=== PATIENT | male | born 1965 | race African-American/Black ===

== ENCOUNTER 2016-07-21 10:05 | Emergency (ER) | payer BC, OTHER ==
[2016-07-21 10:17] VITALS: BP 134/88; PULSE 94; TEMP 98.3
[2016-07-21] MEDS ORDERED: PENICILLIN V POTASSIUM 250 MG TAB PO STA (10:51)
[2016-07-21] MEDS ORDERED: HYDROcodone/APAP 5-325MG 1 EACH TAB PO STA (10:51)
--- NOTE | 2016-07-21 10:52 | ED ---
ENT HPI - General Chief complaint: Dental/Oral Stated complaint: mouth pain Time Seen by Provider: 07/21/16 10:27 Source: patient, RN notes reviewed Mode of arrival: ambulatory Limitations: no limitations - History of Present Illness Initial comments: 51-year-old male present emergency department for right-sided dental pain. Patient states started over the last day or 2. Patient's concern is he has some swelling. Patient denies fever, chills, trismus. Patient denies any headache, next. Patient offers no complaints. - Related Data Previous Rx's Medication Instructions Recorded Hydrocodone/Acetaminophen [[place] 1 tab PO Q6HR PRN #20 tab 07/21/16 5-325] Penicillin V Potassium [Pen Vee K] 500 mg PO QID #40 tab 07/21/16 Allergies Allergy/AdvReac Type Severity Reaction Status Date / Time No Known Allergies Allergy Verified 07/21/16 10:17 Review of Systems ROS Statement: Those systems with pertinent positive or pertinent negative responses have been documented in the HPI. ROS Other: All systems not noted in ROS Statement are negative. Past Medical History Past Medical History: Diabetes Mellitus History of Any Multi-Drug Resistant Organisms: None Reported Past Surgical History: Orthopedic Surgery Past Psychological History: No Psychological Hx Reported Smoking Status: Current every day smoker Past Alcohol Use History: None Reported Past Drug Use History: None Reported General Exam Limitations: no limitations General appearance: alert, in no apparent distress Head exam: Present: atraumatic, normocephalic, normal inspection Eye exam: Present: normal appearance, PERRL, EOMI. Absent: scleral icterus, conjunctival injection, periorbital swelling ENT exam: Present: mucous membranes moist. Absent: normal oropharynx (Abscess noted #3, dental fracture) Neck exam: Present: normal inspection, full ROM. Absent: tenderness, meningismus, lymphadenopathy Respiratory exam: Present: normal lung sounds bilaterally. Absent: respiratory distress, wheezes, rales, rhonchi, stridor Cardiovascular Exam: Present: regular rate, normal rhythm, normal heart sounds. Absent: systolic murmur, diastolic murmur, rubs, gallop, clicks Course Vital Signs 07/21/16 10:15 Temperature 98.3 F Pulse Rate 94 Respiratory 20 Rate Blood Pressure 134/88 O2 Sat by Pulse 98 Oximetry Procedures - Procedures Initial comment: Dental abscess tooth #3. Area was anesthetized using 1% lidocaine without epinephrine 2 mL, 18-gauge needle was used to open the abscess large amount. Drainage was removed. Disposition Clinical Impression: Dental abscess, Toothache Disposition: HOME SELF-CARE Condition: Stable Instructions: Dental Abscess (ED) Additional Instructions: Please follow-up with your dentist or on-call oral surgeon.Please return to the Emergency Department if symptoms worsen or any other concerns. Prescriptions: Hydrocodone/Acetaminophen [[place] 5-325] 1 tab PO Q6HR PRN #20 tab PRN Reason: Pain Penicillin V Potassium [Pen Vee K] 500 mg PO QID #40 tab Referrals: Reshma Sykes DO [Primary Care Provider] - 1-2 days Gelacio Rangel DDS [STAFF PHYSICIAN] - 1-2 days Time of Disposition: 10:51
[2016-07-21] MEDS ORDERED: PENICILLIN VK 500MG STARTER 4 TAB BTL PO STA (10:58)
[2016-07-21 11:09] VITALS: RESP 16
== END 2016-07-21 11:05 | disposition home or self-care (01) ==
LOC: EC 10:05
DX: K04.7 Periapical abscess without sinus (principal); E11.9 Type 2 diabetes mellitus without complications; Z79.899 Other long term (current) drug therapy
CPT/HCPCS: 41800; 99282

== ENCOUNTER 2018-11-21 15:11 | Emergency (ER) | payer MEDICARE, OTHER ==
[2018-11-21 15:22] VITALS: BP 115/62; PULSE 90; RESP 18; TEMP 97.5
[2018-11-21] MEDS ORDERED: predniSONE 50 MG TAB PO STA (15:35)
[2018-11-21] MEDS ORDERED: KETOROLAC 60 MG/2 ML VIAL IM STA (15:35)
--- NOTE | 2018-11-21 15:41 | ED ---
General Adult HPI - General Chief complaint: Back Pain/Injury Stated complaint: back pain Time Seen by Provider: 11/21/18 15:25 Source: patient, RN notes reviewed, old records reviewed Mode of arrival: ambulatory Limitations: no limitations - History of Present Illness Initial comments: 52-year-old male patient presents ED with left paralumbar back strain. Patient was that he was moving some heavy furniture yesterday when he began to drain some pain in his left paralumbar region. Patient denies any falls or trauma. Patient denies any loss of bowel or bladder control. Patient states that he had some transient paresthesias on the medial aspect of his thighs which resolved. Denies any current paresthesias. Patient is ambulatory. Patient denies any chest pain shortness breath abdominal pain. Patient denies any other complaints. Systemic: Pt denies fatigue, myalgia, fever/chills, rash. Pt denies weakness, night sweats, weight loss. Neuro: Pt denies headache, visual disturbances, syncope or pre-syncope. HEENT: Pt denies ocular discharge or irritation, otalgia, rhinorrhea, pharyngitis or notable lymphadenopathy. Cardiopulmonary: Pt denies chest pain, SOB, heart palpitations, dyspnea on exertion. Abdominal/GI: Pt denies abdominal pain, n/v/d. : Pt denies dysuria, burning w/ urination, frequency/urgency. Denies new onset urinary or bowel incontinence. MSK: Pt denies loss of strength or function in extremities. Neuro: Pt denies new onset weakness, paresthesias. - Related Data Previous Rx's Medication Instructions Recorded Hydrocodone/Acetaminophen [[place] 1 tab PO Q6HR PRN #20 tab 07/21/16 5-325] Penicillin V Potassium [Pen Vee K] 500 mg PO QID #40 tab 07/21/16 Ibuprofen [Motrin] 600 mg PO Q6HR PRN #40 day 11/21/18 predniSONE 50 mg PO DAILY #4 tab 11/21/18 Allergies Allergy/AdvReac Type Severity Reaction Status Date / Time No Known Allergies Allergy Verified 07/21/16 10:17 Review of Systems ROS Statement: Those systems with pertinent positive or pertinent negative responses have been documented in the HPI. ROS Other: All systems not noted in ROS Statement are negative. Past Medical History Past Medical History: Diabetes Mellitus History of Any Multi-Drug Resistant Organisms: None Reported Past Surgical History: Orthopedic Surgery Past Psychological History: No Psychological Hx Reported Smoking Status: Current every day smoker Past Alcohol Use History: None Reported Past Drug Use History: None Reported General Exam - General Exam Comments Initial Comments: Constitutional: NAD, AOX3, Pt has pleasant affect. HEENT: NC/AT, trachea midline, neck supple, no lymphadenopathy. Posterior pharynx non erythematous, without exudates. External ears appear normal, without discharge. Mucous membranes moist. Eyes PERRLA, EOM intact. There is no scleral icterus. No pallor noted. Cardiopulmonary: RRR, no murmurs, rubs or gallops, no JVD noted. Lungs CTAB in anterior and posterior moon. No peripheral edema. Abdominal exam: Abdomen soft and non-distended. Abdomen non-tender to palpation in all 4 quadrants. Bowel sounds active in LLQ. No hepatosplenomegaly. No ecchy mosis Neuro: CN II-XII grossly intact. No nuchal rigidity. MSK: 5 out of 5 strength psoas and quadriceps muscles. Sensation intact. Heel to toe walking intact. Left straight leg raise positive. Patient declined rectal exam. No posterior calf tenderness bilaterally, homans sign negative bilaterally. Posterior tibialis and radial pulse +2 bilaterally. Sensation intact in upper and lower extremities. Full active ROM in upper and lower extremities, 5/5 stregnth. Limitations: no limitations Course Vital Signs 11/21/18 15:20 Temperature 97.5 F L Pulse Rate 90 Respiratory 18 Rate Blood Pressure 115/62 O2 Sat by Pulse 99 Oximetry Medical Decision Making - Medical Decision Making 52-year-old male patient presents ED with left paralumbar back strain. Patient was that he was moving some heavy furniture yesterday when he began to drain some pain in his left paralumbar region. Patient denies any falls or trauma. Patient denies any loss of bowel or bladder control. Patient states that he had some transient paresthesias on the medial aspect of his thighs which resolved. Denies any current paresthesias. Patient is ambulatory. Patient denies any chest pain shortness breath abdominal pain. Patient denies any other complaints. PT VSS, afebrile. 5 out of 5 strength psoas and quadriceps muscles. Sensation intact. Heel to toe walking intact. Left straight leg raise positive. Patient declined rectal exam. Plain film of the lumbar spine did not display any acute process. Patient diagnosed with paralumbar back strain with radiculopathy. Patient discharged with 4 additional days of steroids. Patient will use ibuprofen as needed for pain. Patient will initially follow up with primary care provider. Return precautions discussed, patient verbalized understanding. Patient will be provided orthopedic consult if symptoms persist. Case discussed with Dr. Bray. Disposition Clinical Impression: Lumbar back sprain Disposition: HOME SELF-CARE Condition: Stable Instructions (If sedation given, give patient instructions): Acute Low Back Pain (ED) Additional Instructions: Patient to adhere to previously discussed treatment plan and will take medication(s) as directed. Patient to follow up with PCP in 1-2 days. Patient to return to ED if symptoms do not improve. Take medication as directed. Follow up with primary care provider in 1-2 days. Follow up with orthopedic consult symptoms persist. Return to ER if conditions worsen anyway. Prescriptions: Ibuprofen [Motrin] 600 mg PO Q6HR PRN #40 day PRN Reason: Pain predniSONE 50 mg PO DAILY #4 tab Is patient prescribed a controlled substance at d/c from ED?: No Referrals: None,Stated [Primary Care Provider] - 1-2 days Madeline Castro DO [Doctor of Osteopathic Medicine] - 1-2 days [facility] [NON-STAFF] - 1-2 days
--- NOTE | 2018-11-21 16:18 | XR ---
EXAMINATION TYPE: XR lumbar spine 2 or 3V DATE OF EXAM: 11/21/2018 CLINICAL HISTORY: Back pain after lifting injury yesterday TECHNIQUE: Frontal and lateral images of the lumbar spine are obtained. 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 There are 5 lumbar type vertebral bodies identified given this assumption. The lumbar spine shows straightened alignment without evidence of acute fracture or dislocation. Vertebral body heights and disk space heights are within normal limit s. The overlying soft tissue appears unremarkable. IMPRESSION: No acute fracture or dislocation is seen in the lumbar spine.
== END 2018-11-21 16:40 | disposition home or self-care (01) ==
LOC: EC 15:11
DX: S39.012A Strain of muscle, fascia and tendon of lower back, initial encounter (principal); M54.16 Radiculopathy, lumbar region; F17.200 Nicotine dependence, unspecified, uncomplicated; X50.0XXA Overexertion from strenuous movement or load, initial encounter
CPT/HCPCS: 72100; 99284; 96372; J1885; J7512

== ENCOUNTER 2018-11-29 16:39 | Emergency (ER) | payer MEDICARE ==
[2018-11-29 17:04] VITALS: BP 108/71; PULSE 101; RESP 18; TEMP 98.6
[2018-11-29] MEDS ORDERED: methylPREDNISolone SOD SUCCI 125 MG/2 ML VIAL IM ONE (18:29)
[2018-11-29] MEDS ORDERED: Acetaminophen-Codeine 300-30mg TAB PO STA (18:30)
[2018-11-29] MEDS ORDERED: IBUPROFEN 600 MG TAB PO STA (18:30)
[2018-11-29] MEDS ORDERED: ACET/COD 300 MG/30 MG STARTER PACK 6 TAB BTL PO STA (18:54)
--- NOTE | 2018-11-29 18:56 | ED ---
Back Pain [facility] - General Chief Complaint: Back Pain/Injury Stated Complaint: back pain Time Seen by Provider: 11/29/18 17:25 Source: patient Limitations: no limitations - History of Present Illness Initial Comments: 53-year-old male presenting for neck and low back pain. Patient states that about a week ago he was lifting heavy furniture and noted pain in his neck and low back. Patient states that he has had pain since. He presents to the emergency department for evaluation of low back pain earlier this week. He states the pain has continued he believes he has "sciatica". He states he has a sharp pain that radiates down both legs that increases with moving. He denies any weakness or loss of bowel bladder control or urinary retention. He states he has full sensation of both legs. He states he has had a previous neck injury, and hasn't had any recent problems until he lifted the heavy object last week. He states he has a sharp shooting pain in the left arm. He denies any speech changes visual changes headache falls or trauma to the head. He states the left arm pain is identical to when he had neck problems in the past. Patient denies chest pain or SOB. She denies any IV drug use history of cancer fever chills night sweats Remaining ROS (-). Upon arrival patient appears well- nourished signs of acute distress ambulate without difficulty. - Related Data Home Medications Medication Instructions Recorded Confirmed Empagliflozin [Jardiance] 10 mg PO DAILY 11/21/18 11/29/18 [place] Carbonate [Lithobid] 600 mg PO HS 11/21/18 11/29/18 Losartan Potassium [Cozaar] 25 mg PO DAILY 11/21/18 11/29/18 Oxymetazoline HCl [Vicks Sinex] 1 spray EA NOSTRIL DAILY PRN 11/21/18 11/29/18 Tamsulosin HCl [Flomax] 0.4 mg PO HS 11/21/18 11/29/18 glipiZIDE [Glucotrol] 10 mg PO BID 11/21/18 11/29/18 metFORMIN HCL ER [Glucophage Xr] 1,000 mg PO BID 11/21/18 11/29/18 Previous Rx's Medication Instructions Recorded Ibuprofen [Motrin] 600 mg PO Q6HR PRN #40 day 11/21/18 predniSONE 50 mg PO DAILY #4 tab 11/21/18 Allergies Allergy/AdvReac Type Severity Reaction Status Date / Time No Known Allergies Allergy Verified 11/29/18 17:55 Review of Systems ROS Statement: Those systems with pertinent positive or pertinent negative responses have been documented in the HPI. ROS Other: All systems not noted in ROS Statement are negative. Past Medical History Past Medical History: Diabetes Mellitus Additional Past Medical History / Comment(s): back History of Any Multi-Drug Resistant Organisms: None Reported Past Surgical History: Orthopedic Surgery Past Psychological History: No Psychological Hx Reported Smoking Status: Current every day smoker Past Alcohol Use History: Occasional Past Drug Use History: None Reported General Exam - General Exam Comments Initial Comments: General: The patient is awake and alert, in no distress, and does not appear acutely ill. Eye: Pupils are equal, round and reactive to light, extra-ocular movements are intact. No nystagmus. There is normal conjunctiva bilaterally. No signs of icterus. Ears, nose, mouth and throat: There are moist mucous membranes and no oral lesions. Neck: The neck is supple, there is no tenderness or JVD. Cardiovascular: There is a regular rate and rhythm. No murmur, rub or gallop is appreciated. Respiratory: Lungs are clear to auscultation, respirations are non-labored, breath sounds are equal. No wheezes, stridor, rales, or rhonchi. Gastrointestinal: Soft, non-distended, non-tender abdomen without masses or organomegaly noted. There is no rebound or guarding present. Musculoskeletal: Paravertebral tenderness of the cervical and lumbar spine. Mild midline tenderness to palpation of the lumbar spine. No midline tenderness to palpation of the cervical spine. Positive Spurling's of the left side on exam. Normal ROM, no tenderness of the upper and lower extremities. Strength 5/5 of the upper and lower extremities equal and comparison bilaterally no evidence of weakness. Sensation intact of the upper and lower extremities including the saddle region. Radial and DP pulses equal bilaterally 2+. No LE swelling. +2/5 DTR of the patella and achilles. No clonus or fasciculations. Patient is able to make the okay fingers crossed thumbs-up and oppose the wrist bilaterally. Neurological: A&O x 3. CN II-XII intact, There are no obvious motor or sensory deficits. Coordination appears grossly intact. Speech is normal. Skin: Skin is warm and dry and no rashes or lesions are noted. Psychiatric: Cooperative, appropriate mood & affect, normal judgment. Limitations: no limitations Course Vital Signs 11/29/18 17:01 Temperature 98.6 F Pulse Rate 101 H Respiratory 18 Rate Blood Pressure 108/71 O2 Sat by Pulse 98 Oximetry Medical Decision Making - Medical Decision Making 53-year-old male presented for back pain and neck pain following lifting heavy objects one-week prior. Patient describes pain sharp shooting appears radicular in nature. Reducible by walking positive straight leg raise. Positive Spurling's on the left sidetest on the right. Patient denies any pain prior to the onset of lifting heavy furniture. Patient believes he has sciatica. Patient is provided medications in the emergency department he states he just wanted symptomatic relief. He states he had previous imaging studies. After medication was administered patient requesting discharge. At this time given patient is neurovascular intact no evidence of weakness or sensation deficits. Patient denies any chest pain or shortness of breath. Pain is reproducible. The patient is stable for discharge after discussing case with her provider Dr. Bunn. He is agreeable care plan discharge. I did recommend orthopedic surgery follow-up with patient for further evaluation if symptoms persist. Return parameters were discussed at length the patient including signs of cauda equina. He verbalized understanding. I discussed the possibility of herniated disc causing patient's symptoms. Patient verbalizes understanding. Patient was discharged appearing well Disposition Clinical Impression: Back pain, Radicular pain, Neck pain Disposition: HOME SELF-CARE Condition: Good Instructions (If sedation given, give patient instructions): Lumbar Disc Herniation (ED), Cervical Disc Herniation (ED), Lower Back Exercises (ED) Additional Instructions: Please use medication as discussed. Please follow-up with family doctor in the next 2 days. Please follow-up with orthopedic surgery as discussed. Please return to emergency room if the symptoms increase or worsen or for any other concerns. Is patient prescribed a controlled substance at d/c from ED?: No Referrals: None,Stated [Primary Care Provider] - 1-2 days [facility] [NON-STAFF] - 1-2 days Madeline Castro DO [Doctor of Osteopathic Medicine] - 1-2 days Time of Disposition: 18:55
== END 2018-11-29 19:05 | disposition home or self-care (01) ==
LOC: EC 16:39
DX: M54.16 Radiculopathy, lumbar region (principal); M54.12 Radiculopathy, cervical region; E11.9 Type 2 diabetes mellitus without complications; F17.200 Nicotine dependence, unspecified, uncomplicated; Z79.84 Long term (current) use of oral hypoglycemic drugs; Z79.899 Other long term (current) drug therapy
CPT/HCPCS: 99283; 96372; J2930

== ENCOUNTER 2020-02-03 12:53 | Emergency (ER) | payer MEDICARE, OTHER ==
[2020-02-03 13:13] VITALS: BP 130/83; PULSE 100; RESP 18; TEMP 99.4
--- NOTE | 2020-02-03 13:23 | ED ---
ENT HPI - General Chief complaint: Dental/Oral Stated complaint: Dental Pain Time Seen by Provider: 02/03/20 13:15 Source: patient Mode of arrival: ambulatory Limitations: no limitations - History of Present Illness Initial comments: Patient is a 54-year-old male presenting to emergency Department with chief complaint of dental pain. Patient reports recently he had them canal performed in the right upper region of the oral cavity. Patient reports he was started amoxicillin but states he has developed swelling in the region. Patient states now his gums "looked black". Patient denies any night sweats fevers or chills. States he still able to fully open the mouth. Denies any submandibular swelling, odontophagia or dysphagia. He reports a mild right-sided facial swelling near the right maxillary region where the root canals performed. He is not a diabetic nor immunocompromised. - Related Data Home Medications Medication Instructions Recorded Confirmed Empagliflozin [Jardiance] 10 mg PO DAILY 11/21/18 11/29/18 [place] Carbonate [Lithobid] 600 mg PO HS 11/21/18 11/29/18 Losartan Potassium [Cozaar] 25 mg PO DAILY 11/21/18 11/29/18 Oxymetazoline HCl [Vicks Sinex] 1 spray EA NOSTRIL DAILY PRN 11/21/18 11/29/18 Tamsulosin HCl [Flomax] 0.4 mg PO HS 11/21/18 11/29/18 glipiZIDE [Glucotrol] 10 mg PO BID 11/21/18 11/29/18 metFORMIN HCL ER [Glucophage Xr] 1,000 mg PO BID 11/21/18 11/29/18 Previous Rx's Medication Instructions Recorded Ibuprofen [Motrin] 600 mg PO Q6HR PRN #40 day 11/21/18 predniSONE 50 mg PO DAILY #4 tab 11/21/18 Amoxicillin/Potassium Clav 1 tab PO Q12HR #20 tab 02/03/20 [Augmentin 875-125 Tablet] Allergies Allergy/AdvReac Type Severity Reaction Status Date / Time No Known Allergies Allergy Verified 02/03/20 13:13 Review of Systems ROS Statement: Those systems with pertinent positive or pertinent negative responses have been documented in the HPI. ROS Other: All systems not noted in ROS Statement are negative. Past Medical History Past Medical History: Diabetes Mellitus Additional Past Medical History / Comment(s): back History of Any Multi-Drug Resistant Organisms: None Reported Past Surgical History: Orthopedic Surgery Past Psychological History: Bipolar Smoking Status: Current every day smoker Past Alcohol Use History: Occasional Past Drug Use History: None Reported General Exam Limitations: no limitations General appearance: alert, in no apparent distress Head exam: Present: atraumatic, normocephalic, normal inspection Eye exam: Present: normal appearance, PERRL, EOMI Pupils: Present: normal accommodation ENT exam: Present: normal exam, mucous membranes moist, other (Mild right-sided facial swelling localized to the right maxillary region. No signs of Vini's angina). Absent: normal oropharynx (There appears to be a hematoma near the procedure site near tooth #3, 4 and 5. There also appears to be a periapical abscess in the region.) Neck exam: Present: normal inspection, full ROM. Absent: tenderness Respiratory exam: Present: normal lung sounds bilaterally. Absent: respiratory distress Cardiovascular Exam: Present: regular rate, normal rhythm, normal heart sounds Extremities exam: Present: normal inspection, full ROM. Absent: tenderness Back exam: Present: normal inspection, full ROM. Absent: tenderness Neurological exam: Present: alert, oriented X3 Psychiatric exam: Present: normal affect, normal mood Skin exam: Present: warm, dry, intact, normal color Course Vital Signs 02/03/20 13:08 Temperature 99.4 F Pulse Rate 100 Respiratory 18 Rate Blood Pressure 130/83 O2 Sat by Pulse 97 Oximetry Procedures - Incision & Drainage Consent Obtained: verbal consent Indication: Periapical abscess Site: oral Size (cm): 2 Sterile Field Used?: No Needle Aspiration Performed?: Yes Irrigation Performed?: No I&D Drainage Obtained: Pus, Blood Culture Obtained?: No Complications: pain, bleeding Patient Tolerated Procedure: well, no complications Medical Decision Making - Medical Decision Making Patient is a 54-year-old male presenting to the emergency room chief complaint dental pain. On exam patient has a hematoma with underlying abscess in the oral cavity near the root canal site. No sign of Vini's angina. Incision and drainage was performed with large amounts of pus and blood removed. Almost immediate improvement in the swelling on the right side of his face. Patient did report improvement in his pain. Patient advised discontinue the amoxicillin and was started on Augmentin. Advised to return back to his dentist. Strict return parameters were thoroughly discussed with patient was understanding and agreeable. Case discussed physician. Disposition Clinical Impression: Pain, dental, Dental abscess Disposition: HOME SELF-CARE Condition: Stable Instructions (If sedation given, give patient instructions): Toothache (ED) Additional Instructions: Take prescribed medication as directed. Follow-up with your dentist. Return to emergency department if symptoms worsen. Prescriptions: Amoxicillin/Potassium Clav [Augmentin 875-125 Tablet] 1 tab PO Q12HR #20 tab Is patient prescribed a controlled substance at d/c from ED?: No Referrals: None,Stated [Primary Care Provider] - 1-2 days Time of Disposition: 13:39
== END 2020-02-03 13:52 | disposition home or self-care (01) ==
LOC: EC 12:53
DX: K04.7 Periapical abscess without sinus (principal); E11.9 Type 2 diabetes mellitus without complications; F31.9 Bipolar disorder, unspecified; F17.200 Nicotine dependence, unspecified, uncomplicated; Z79.84 Long term (current) use of oral hypoglycemic drugs; Z79.899 Other long term (current) drug therapy
CPT/HCPCS: 41800; 99282

== ENCOUNTER → 2023-09-13 | Outpatient (CLI) | payer OTHER ==
--- NOTE | 2023-09-13 10:45 | MR ---
EXAMINATION TYPE: MR cervical spine wo con DATE OF EXAM: 09/13/2023 COMPARISON: None HISTORY: Neck pain TECHNIQUE: Multiplanar, multisequence images of the cervical spine were acquired without contrast. Findings: Craniovertebral junction relation to prevertebral soft tissues are normal. The cervical vertebral segments are normal in height and alignment and there is no fracture or sublux ation. There is [id number] degenerative disease at the C3-4 level where there is [id number] te disc space narrowing and spondylosis. There is moderate to severe degenerative disease at C4-5, C5 -6 and C6-7 levels where there is moderate to marked disc space narrowing and spondylosis. There is no cervical disc herniation. The cervical cord is normal in size and signal intensity. Secondary to posterior disc bulge and spondylosis there is moderate cervical stenosis at C3-4, mild c ervical spine stenosis at C4-5 and C5-6 and moderate to severe cervical stenosis at C6-7., There is multilevel neural foraminal encroachment as follows; moderate at C3-4 bilaterally , moderate at C4-5 on the right, mild at C4-5 on the left, mild at C5-6 bilaterally and mild to moderate at C6- 7 bilaterally. The paraspinal soft tissues are unremarkable. IMPRESSION: 1. Multilevel moderate to severe degenerative disc disease as described above. 2. No cervical disc herniation. 3. Multilevel spinal stenosis Moderate at C3-4 level, mild at C4-5 and C5-6 levels and moderate to se ag at the C6-7 level 4. Multilevel bilateral neural foraminal stenosis secondary to degenerative change of the uncovertebr al joints as described above.
== END | disposition home or self-care (01) ==
LOC: RADMRIMAIN 09:24
PROVIDERS: ATTEND Family Medicine
DX: M50.30 Other cervical disc degeneration, unspecified cervical region (principal); M99.71 Connective tissue and disc stenosis of intervertebral foramina of cervical region; M47.812 Spondylosis without myelopathy or radiculopathy, cervical region; M48.02 Spinal stenosis, cervical region
CPT/HCPCS: 72141